=== PATIENT | male | born 1980 | race Caucasian/White ===

== ENCOUNTER 2019-04-16 08:06 | Day surgery (SDC) | payer OTHER, SELFPAY ==
[2019-04-15 15:13] VITALS: BMI 40.1
[2019-04-16] VITALS (9 sets, daily range): BP systolic 103–134; BP diastolic 60–95; PULSE 69–81; RESP 15–35; TEMP 36.4–36.8; O2SAT 82–97; BMI 39.2
[2019-04-16] MEDS: LACTATED RINGERS 1,000 ML 100 ML IV (08:39)
--- NOTE | 2019-04-16 09:47 | PM.HP.1 ---
History of Present Illness History of Present Illness Date Patient Seen: 04/16/19 Time Patient Seen: 09:48 Chief complaint: [id number] OPEN UMBILICAL HERNIA REPAIR W/MESH Narrative: This is a 38-year-old male with a symptomatic umbilical hernia who presents for elective repair. There been no interval changes in his health. Please refer the H and P from December 2018 for further detail. Patient History Medical History Carpal tunnel syndrome (Acute) Surgical History Hx of foot surgery (Resolved) Family & Social History Social History: household members spouse Tobacco & Substance use: Smoking Status Never smoker alcohol intake current Meds Home Medications and Allergies Home Medications Medication Instructions Recorded Confirmed Type No Known Home Medications 01/02/19 04/15/19 History Allergies Allergy/AdvReac Type Severity Reaction Status Date / Time No Known Drug Allergies Allergy Verified 04/16/19 08:40 Review of Systems Review of Systems Narrative: A complete review of systems is negative except as noted in the HPI Exam Vital Signs (past 8 hours): - 04/16/19 08:18 Temperature 97.6 F Pulse Rate 81 Respiratory Rate 16 Blood Pressure 133/83 Pulse Oximetry 97 Oxygen Delivery Method Room Air Narrative Exam Narrative: General-no acute distress, well nourished HEENT-moist mucous membranes, no scleral icterus Neck-supple, no lymphadenopathy Chest- non labored respirations, clear to auscultation bilaterally Cardiac-regular rate no peripheral edema Abdomen-soft, partially reducible umbilical hernia Extremities-warm, well perfused Neurological-alert and oriented, no focal deficits Assessment & Plan Assessment and plan (1) Umbilical hernia: Current visit: Yes Status: Acute Assessment & Plan narrative: 38-year-old male with umbilical hernia presents for elective open repair possible mesh. Please see the H& P from December 2018 for further detail.
[2019-04-16] MEDS: CEFAZOLIN 2 GM/100 ML FROZ.PIGGY IV (09:58)
--- NOTE | 2019-04-16 10:22 | SUR.OPER ---
Supine on padded OR bed, head on pillow, arms secured on padded arm boards at <90 degrees abduction, legs uncrossed, safety belt at thigh, tape over blanket over lower legs.
[2019-04-16] MEDS: BUPIVACAINE 0.25% (PF) VIAL 30 ML INJ (10:28)
--- NOTE | 2019-04-16 11:16 | PM.OP.1 ---
Operative Date/Time/Diagnoses Date of procedure: 04/16/19 Time of procedure: 11:16 Pre-op diagnosis: Umbilical hernia Post-op diagnosis: same Procedure & Clinicians Procedure: open umbilical hernia with mesh Same procedure as scheduled: Yes Indications: 38M with a symptomatic umbilical hernia presents for elective repair Surgeon: Luis Antonio Noble Anesthesia Type: General Operative Notes Findings: Fat containing umbilical hernia. Fascial defect 3 cm Estimated Blood Loss (mL): 10 Procedure in detail: Patient was brought to the operating room placed supine on the table. Bilateral lower extremity compression devices were applied. General anesthesia was inducedand they were intubated with an endotracheal tube. They received 2 g of Ancef prior to skin incision. They were prepped and draped in sterile fashion. A time-out was performed ensure the correct patient procedure necessary equipment within the operating room. A curvilinear incision was made inferior to the umbilicus. The subcutaneous tissues were divided. The umbilical hernia was identified and was dissected off the umbilicus and circumferentially. The umbilical hernia sac was opened carefully using Shankar and contained viable omentum. The hernia sac was then closed with 3 0 Vicryl suture. The sac was reduced into the abdomen and the fascia was cleared from above in order to accommodate the mesh. The fascial edges were then reapproximated with a [id number] 0 PDS suture. A Pro Loop polypropylene mesh was inserted over the fascial defect. It was secured to the fascia using 0 Prolene suture in interrupted fashion. The subcutaneous tissues were reapproximated using 3 0 Vicryl skin closed with 4 0 Monocryl upon by the application of Dermabond and Steri-Strips. Sponge instrument count at the end of the operation was correct. Patient tolerated procedure well was extubated and transferred to postoperative care unit in stable condition. Complications: none Post-operative Condition: stable Disposition: same day surgery
[2019-04-16] MEDS: OXYCODONE/ACETAMINOPHEN 5/325 TABLET 1 TAB PO (11:31)
[2019-04-16] MEDS: fentaNYL 100 MCG/2 ML INJ 50 MCG IV (11:43)
--- NOTE | 2019-04-16 12:07 | SUR.PHASEI ---
Report given to Catherine
== END 2019-04-16 12:36 | disposition home or self-care (01) ==
PROVIDERS: PCP Family Medicine; Visit Provider Surgery
PROC: (CPT 49585; principal; 2019-04-16 09:15)
DX: K42.9 Umbilical hernia without obstruction or gangrene (principal)
CPT/HCPCS: 49585; C1781; J0690; J1100; J2250; J2405; J2704; J3010

== ENCOUNTER 2023-07-07 21:35 | Emergency (ER) | payer OTHER, SELFPAY ==
[2023-07-07 21:38] VITALS: BP 138/82; PULSE 83; RESP 18; TEMP 36.7; O2SAT 98; BMI 40.7
--- NOTE | 2023-07-07 21:43 | DI.RAD.S_ITS ---
PROCEDURE: XR CHEST 2V INDICATIONS: cough, sob TECHNIQUE: 2 views of the chest were acquired. COMPARISON: None. FINDINGS: Surgical changes and devices: None. Lungs and pleura: Diffuse interstitial prominence. Mild perihilar airway thickening. No focal consolidation. No pneumothorax or pleural effusion. Mediastinum: Mediastinal contours are normal. Heart size is normal. Bones and chest wall: No suspicious bony abnormalities. Soft tissues appear unremarkable. IMPRESSION: Diffuse interstitial prominence and perihilar airway thickening. Findings are nonspecific but may represent an infectious or inflammatory process. No focal consolidation seen. Dictated by: Ankur Giron M.D. on 07/07/2023 at 22:18 Approved by: Ankur Giron M.D. on 07/07/2023 at 22:19
[2023-07-07 22:20] VITALS: PULSE 92; RESP 28; O2SAT 96
--- NOTE | 2023-07-07 22:46 | ED_ITS ---
HPI - URI/Sore Throat General Chief Complaint: Upper Respiratory Symptoms Stated Complaint: cough/SOB/states lungs burn Time Seen by Provider: 07/07/23 22:35 Source: patient Mode of arrival: Ambulatory Limitations: no limitations History of Present Illness HPI Narrative: 42-year-old male with history of hypertension with proximally 2 weeks of cough cold congestion symptoms although patient states he was feeling better until today. Patient had fevers and sweats a week ago, he had nausea and vomiting at that time as well. He states that has improved. Patient never had any diarrhea. He has had a persistent cough that has been nonproductive. Had improved until this evening when it was triggered again. Patient states he had some chest discomfort last week when he was coughing a lot. But states that that had resolved. No syncope. No diarrhea or constipation. No other GI symptoms. No swelling of extremities. He is on lisinopril daily. Has had prior carpal tunnel surgery. No allergies but does not tolerate codeine well. No tobacco, does drink alcohol regularly, no recreational drugs. He is accompanied by his . Related Data Home Medications Medication Instructions Recorded Confirmed hydroxyzine HCl 25 mg tablet 25 mg PO BID 02/19/23 02/19/23 lisinopril 20 mg tablet 20 mg PO DAILY 02/19/23 02/19/23 testosterone cypionate 200 mg/mL mg IM 02/19/23 02/19/23 intramuscular oil Previous Rx's Medication Instructions Recorded doxycycline hyclate 100 mg capsule 100 mg PO BID #14 caps 02/19/23 benzonatate 100 mg capsule 200 mg (2 x 100 mg) PO TID PRN 07/07/23 cough #20 caps Allergies Allergy/AdvReac Type Severity Reaction Status Date / Time No Known Drug Allergies Allergy Verified 02/19/23 15:04 Review of Systems Review of Systems ROS Unobtainable: All systems reviewed & are unremarkable except as noted in HPI and below Patient History Medical History (Updated 07/07/23 @ 23:16 by Jacinda Corona DO) Carpal tunnel syndrome Surgical History Hx of foot surgery Social History household members: spouse Smoking Status: Never smoker alcohol intake: current substance use type: does not use Smoking Status: Never smoker Exam Narrative Exam Narrative: GEN: well nourished, well appearing male, alert and oriented x 3, patient appears to be in mild distress. HEENT: Atraumatic, pupils are equal round reactive to light, extraocular movements are intact, mild nasal congestion, Throat is clear without any exudates, erythema, tonsillar enlargement or uvular deviation HEART: Regular rate and rhythm without murmur, clicks, rubs. LUNGS:Lungs clear to auscultation, no wheezes, rales, crackles, chest moves symmetrically, no tachypnea or accessory muscle use. Patient has a occasional dry cough. ABD:bowel sounds normal, soft, non-tender, no guarding, rebound, rigidity, no masses noted, no hepatosplenomegaly :No CVA tenderness, [male/female exam] MSCL: Non-tender, no muscle atrophy, muscles strength 5/5 upper and lower extremities, full range of motion, normal gait NEURO:CN 2-12 intact, sensation normal SKIN: No rash, erythema or other skin changes Initial Vital Signs Initial Vital Signs: Vital Signs Temperature 98.1 F 07/07/23 21:38 Pulse Rate 83 07/07/23 21:38 Respiratory Rate 18 07/07/23 21:38 Blood Pressure 138/82 07/07/23 21:38 Pulse Oximetry 98 07/07/23 21:38 Oxygen Delivery Method Room Air 07/07/23 21:38 Course Orders Ordered: ED Orders 07/07/23 21:43 Chest [XR chest 2V] Stat 07/07/23 21:46 Covid-19 + FLU A/B + RSV - PCR Stat Vital Signs Vital signs: Vital Signs - 8 hr 07/07/23 21:38 07/07/23 22:20 07/07/23 23:14 Temperature 98.1 F Pulse Rate 83 92 H 89 Respiratory Rate 18 28 H 18 Blood Pressure 138/82 Pulse Oximetry 98 96 97 Oxygen Delivery Method Room Air Room Air Room Air MDM - URI/Sore Throat Lab Data Labs: Lab Results 07/07/23 Range/Units 21:46 SARS-CoV-2 (PCR) Negative (Negative) Influenza A (RT-PCR) Flu a positive H (NEGATIVE) Influenza B (RT-PCR) Flu b negative (NEGATIVE) RSV (PCR) Negative (Negative) Imaging Data Chest x-ray: Radiologist's Impression: [address] [address] XRay Report Signed Patient: Carlos Flores MR#: [id number] : 1980 Acct:[id number] Age/Sex: 42 / M Date of Service: 07/07/23 Loc: ED Accession Number: [id number] Procedure: XR chest 2V Ordering Provider: Jacinda Corona D.O. PROCEDURE: XR CHEST 2V INDICATIONS: cough, sob TECHNIQUE: 2 views of the chest were acquired. COMPARISON: None. FINDINGS: Surgical changes and devices: None. Lungs and pleura: Diffuse interstitial prominence. Mild perihilar airway thickening. No focal consolidation. No pneumothorax or pleural effusion. Mediastinum: Mediastinal contours are normal. Heart size is normal. Bones and chest wall: No suspicious bony abnormalities. Soft tissues appear unremarkable. IMPRESSION: Diffuse interstitial prominence and perihilar airway thickening. Findings are nonspecific but may represent an infectious or inflammatory process. No focal consolidation seen. Dictated by: Ankur Giron M.D. on 07/07/2023 at 22:18 Approved by: Ankur Giron M.D. on 07/07/2023 at 22:19 [facility] Narrative Medical decision making narrative: 32-year-old male with history of hypertension who has had about 2 weeks of respiratory symptoms he was actually improving was asymptomatic for a day or 2 and then developed new symptoms. Last week he had more GI symptoms. Patient had COVID/influenza RSV swab this was still pending but patient elected to return home. Chest x-ray shows diffuse interstitial prominence perihilar airway thickening non suspected or infectious or inflammatory process no focal consolidation. Patient is influenza A, patient and state they will follow up results. Discharge Plan Departure Patient Disposition: Home Clinical Impression: Upper respiratory infection, Influenza A Activity Restrictions/Additional Instructions: Your swab for influenza/RSV/COVID is pending. Please call for results. Your chest x-ray shows findings most consistent with a viral illness. You may take cough medication as prescribed. [facility] [place]. You may take 1 tab every 8 hours as needed. Please return for new or worsening chest pain, increasing shortness of breath, lightheadedness or passing out, persistent or new swelling of your extremities or other new or concerning changes. Prescriptions: New benzonatate 100 mg capsule 200 mg PO TID PRN (Reason: cough) Qty: 20 0RF No Action testosterone cypionate 200 mg/mL oil IM lisinopril 20 mg tablet 20 mg PO DAILY hydroxyzine HCl 25 mg tablet 25 mg PO BID doxycycline hyclate 100 mg capsule 100 mg PO BID Qty: 14 0RF Referrals: Carlos Gutierrez MD [Primary Care Provider] - Stand Alone Forms: Patient Portal/API
[2023-07-07 23:13] LABS: COVID-19 CEPHEID 4-PLEX PCR Negative (Negative); Influenza A - CEPHEID Flu A POSITIVE (NEGATIVE); Influenza B - CEPHEID Flu B NEGATIVE (NEGATIVE); Respiratory Syncytial Virus Negative (Negative)
[2023-07-07 23:14] VITALS: PULSE 89; RESP 18; O2SAT 97
== END 2023-07-07 23:19 | disposition home or self-care (01) ==
PROVIDERS: Emergency Provider Emergency Medicine; PCP Family Medicine
DX: J10.1 Influenza due to other identified influenza virus with other respiratory manifestations (principal); Z20.822 Contact with and (suspected) exposure to COVID-19
CPT/HCPCS: 0241U; 71046; 99281; 99283

== ENCOUNTER → 2024-09-18 06:50 | Outpatient (CLI) | payer OTHER, SELFPAY ==
--- NOTE | 2024-09-18 06:52 | DI.ECHO.S_ITS ---
[facility] +---------+ Hospital : : [address] : : [place] : : [id number] : : Phone: [phone] Echocardiogram Report + + :Name: NOHEMI ALLEY Srinivasan Study Date: 09/18/2024 Height: 66 in : :Hospital ReadingLocation: Weight: 304 lb : : Gender: Male BSA: 2.4 m2 : :: 1980 Age: 44 yrs BP: 164/97 mmHg: :Reason For Study: ORTHOPNEA : :Ordering Physician: WARREN, : :ALLEY Performed By: Callum Monroy : :Referring: ALLEY KELLEY : + + Interpretation Summary Extremely technically difficult study. Contrast enhancement helped visualization of LV systolic function. There is normal LV systolic function, LVEF is 55-60%. No wall motion abnormalities are noted. Other cardiac structures are very poorly visualized. Doppler assessment demonstrates absence of aortic stenosis. Other (limited) findings as below. No previous echo images are available for comparison. Procedure: A two-dimensional transthoracic echocardiogram with color flow and Doppler was performed. The study quality was technically difficult. The study quality was technically limited. A contrast injection of Definity was performed to improve assessment of LV function. There is no prior echocardiogram noted for this patient. The patient was in normal sinus rhythm during the exam. Left Ventricle: The left ventricle is not well visualized. The ejection fraction is estimated to be 55-60%. Left ventricular systolic function is normal. Right Ventricle: The right ventricle is not well visualized. Atria: The left atrium is not well visualized. Right atrium not well visualized. The interatrial septum is not well visualized. Mitral Valve: The mitral valve is not well visualized. There is no mitral regurgitation noted. Aortic Valve: The aortic valve is not well visualized. There is no aortic valve stenosis. No aortic regurgitation is present. Tricuspid Valve: The tricuspid valve is not well visualized. No tricuspid regurgitation. Pulmonic Valve: The pulmonic valve is not well visualized. There is no pulmonic valvular regurgitation. Great Vessels: The aortic root is normal size. The dimensions of the ascending aorta are normal. The pulmonary is not well visualized. The inferior vena cava was not visualized. MMode/2D Measurements & Calculations LVIDd: 5.3 cm LVOT diam: 2.2 cm LVIDs: 3.2 cm Ao root diam: 3.5 cm FS: 39.2 % asc Aorta Diam: 3.2 cm EPSS: 0.40 cm IVSd: 1.4 cm LVPWd: 1.2 cm LV saucedo. diameter/BSA (cm/m^2): 2.2 LV sys. diameter/BSA (cm/m^2): 1.3 TAPSE: 1.9 cm Doppler Measurements & Calculations Ao V2 max: 135.6 cm/sec LVOT Max Ralph: 128.1 cm/sec Ao V2 mean: 101.3 cm/sec LV V1 max P.6 mmHg Ao max P.4 mmHg LV V1 VTI: 22.6 cm Ao mean P.4 mmHg FREDI(I,D): 2.8 cm2 Ao V2 VTI: 29.7 cm FREDI(V,D): 3.5 cm2 sev ratio: 0.76 FREDI indexed to BSA (cm^2/m^2): 1.2 MV E max ralph: 89.4 cm/sec PA V2 max: 144.7 cm/sec MV A max ralph: 56.5 cm/sec PA V2 mean: 107.2 cm/sec MV E/A: 1.6 PA mean P.9 mmHg Med Peak E' Ralph: 9.3 cm/sec PA pr(Accel): 49.9 mmHg E/E' med: 9.6 Lat Peak E' Ralph: 9.7 cm/sec E/E' lat: 9.3 E/e' average: 9.4 MV dec time: 0.19 sec SV(LVOT): 84.5 ml Reading Physician:09:44 AM
== END ==
LOC: ECHO 06:51
PROVIDERS: PCP Family Medicine; Referring Provider Family Medicine; Visit Provider Family Medicine
DX: G47.33 Obstructive sleep apnea (adult) (pediatric) (principal); R06.01 Orthopnea
CPT/HCPCS: C8929; Q9957

== ENCOUNTER 2024-10-23 06:52 | Emergency (ER) | payer OTHER, SELFPAY ==
[2024-10-23] VITALS (148 sets, daily range): BP systolic 73–201; BP diastolic 35–144; PULSE 62–190; RESP 4–125; TEMP 36.7–37.6; O2SAT 53–100; BMI 49.2
--- NOTE | 2024-10-23 | DI.RAD.S_ITS ---
PROCEDURE: XR CHEST 1V INDICATIONS: INTUBATION PLACEMENT TECHNIQUE: One view of the chest was acquired. COMPARISON: [facility], CR, XR CHEST 2V, 07/07/2023, 21:45. [facility], CR, XR CHEST 1V, 10/23/2024, 7:18. FINDINGS: Surgical changes and devices: An endotracheal tube is seen, with the tip 3 cm above the kathe. Lungs and pleura: An incomplete inspiratory result is noted, causing a crowded appearance to the lung markings. Mild generalized interstitial prominence can be seen. No pneumothorax or significant pleural effusions are seen. Mediastinum: Mediastinal contours appear normal. Heart size is normal. Bones and chest wall: No suspicious bony lesions. Overlying soft tissues appear unremarkable. IMPRESSION: The tip of the endotracheal tube is seen 3 cm above the kathe. Low lung volumes with generalized interstitial prominence. Pulmonary edema is suspected, although differential diagnosis includes artifact. Dictated by: Louie Joshua M.D. on 10/23/2024 at 10:29 Approved by: Louie Joshua M.D. on 10/23/2024 at 10:31
--- NOTE | 2024-10-23 07:14 | EKG_ITS ---
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
--- NOTE | 2024-10-23 07:14 | DI.RAD.S_ITS ---
PROCEDURE: XR CHEST 1V INDICATIONS: sob/swelling TECHNIQUE: One view of the chest was acquired. COMPARISON: [facility], CR, XR CHEST 2V, 07/07/2023, 21:45. FINDINGS: Surgical changes and devices: None. Lungs and pleura: There is pulmonary vascular congestion. No definite focal infiltrate. No pleural effusions or pneumothorax. Mediastinum: Mediastinal contours appear normal. Heart size is enlarged. Bones and chest wall: No suspicious bony lesions. Overlying soft tissues appear unremarkable. IMPRESSION: Cardiomegaly and mild congestion. No definite focal infiltrate. No pneumothorax. Dictated by: Mason Skinner M.D. on 10/23/2024 at 8:14 Approved by: Mason Skinner M.D. on 10/23/2024 at 8:14
--- NOTE | 2024-10-23 07:15 | ED.SOB ---
HPI - SOB/Dyspnea General Chief Complaint: Shortness of Breath/Dyspnea Stated Complaint: SOB x3days, Cannot Breathe Time Seen by Provider: 10/23/24 07:09 Source: patient, RN notes reviewed and old records reviewed Mode of arrival: Ambulatory Limitations: no limitations History of Present Illness HPI Narrative: 44-year-old male history of hypertension, CHF with complaint of increased swelling of his lips, tongue and airway for the past 3 days. Patient states that has been progressively worse but particularly in the mornings and then we will sort of improve as the day goes by and sometimes worse in the evening. He describes it as slowly progressive but difficult to swallow foods. He states he has been hoarse like he has a frog in his throat. He states he was pain in his tongue where he has been chewing it. Denies any recent infectious symptoms. Denies fevers. Denies any substernal chest pain, denies any shortness of breath in his chest. States he threw up twice 2 days ago, denies any other GI or urinary symptoms. Notes increased swelling in his lower extremities. Does note he has been on lisinopril for several years, recently was started on furosemide, takes Prozac which was started in August. Patient does not take any aspirin or thinners. No known drug allergies has not had similar symptoms in the past. Former smoker. Dr. Gutierrez as his primary care physician. Related Data Home Medications ?Medication ?Instructions ?Recorded ?Confirmed hydroxyzine HCl 25 mg tablet 25 mg PO BID 02/19/23 02/19/23 lisinopril 20 mg tablet 20 mg PO DAILY 02/19/23 02/19/23 testosterone cypionate 200 mg/mL mg IM 02/19/23 02/19/23 intramuscular oil Previous Rx's ?Medication ?Instructions ?Recorded doxycycline hyclate 100 mg capsule 100 mg PO BID #14 caps 02/19/23 benzonatate 100 mg capsule 200 mg (2 x 100 mg) PO TID PRN 07/07/23 cough #20 caps Allergies Allergy/AdvReac Type Severity Reaction Status Date / Time No Known Drug Allergies Allergy Verified 10/23/24 07:01 Review of Systems Review of Systems ROS Unobtainable: All systems reviewed & are unremarkable except as noted in HPI and below Patient History Medical History (Updated 10/23/24 @ 14:49 by Jacinda Corona DO) Carpal tunnel syndrome Surgical History Hx of foot surgery Social History household members: spouse Smoking Status: Former smoker alcohol intake: current substance use type: does not use Smoking Status: Former smoker Exam Narrative Exam Narrative: GEN: Obese male, alert and oriented x 3, patient appears to be in moderate distress. Diaphoretic. HEENT: Atraumatic, pupils are equal round reactive to light, extraocular movements are intact, nares are clear, TMs are clear with no fluid, there is no conjunctival pallor. Throat is clear without any exudates, erythema, tonsillar enlargement or uvular deviation, patient's tongue is swollen, lips are possibly slightly swollen patient's face is erythematous. Patient was sitting upright, no stridor but does have some hoarseness. Does have some trouble with secretions. HEART: Regular rate and rhythm without murmur, clicks, rubs. Pulses equal bilateral upper extremities. Patient has edema bilateral lower extremities. LUNGS:Lungs clear to auscultation, no wheezes, rales, crackles, chest moves symmetrically ABD:bowel sounds normal, soft, non-tender, no guarding, rebound, rigidity, no masses noted, no hepatosplenomegaly MSCL: Non-tender, normal gait NEURO:CN 2-12 intact, sensation normal SKIN: No rash, no erythema no other skin changes Initial Vital Signs Initial Vital Signs: Vital Signs Temperature 98.4 F 10/23/24 07:01 Pulse Rate 114 H 10/23/24 07:01 Respiratory Rate 28 H 10/23/24 07:01 Blood Pressure 186/99 H 10/23/24 07:01 Pulse Oximetry 97 10/23/24 07:01 Oxygen Delivery Method Room Air 10/23/24 07:01 Course Orders Ordered: ED Orders 10/23/24 11:15 CT angio chest abdomen pelvis Urgent CT head/brain wo con Urgent CT soft tissue neck w con Urgent 10/23/24 11:48 Chest [XR chest 1V] Stat 10/23/24 13:08 CBC Auto Diff [Complete Blood Count AUTO DIFF] Stat CMP [Comprehensive Metabolic Panel] Stat Troponin & CK Cardiac Panel Stat 10/23/24 14:23 Potassium Stat Ketamine HCl 250 mg/ Sodium (Chloride) 252.5 mls @ 19.998 mls/hr IV TITRATE [facility]; Protocol Last Titration: 10/23/24 15:26 Dose: 0.4 mg/kg/hr, 39.996 mls/hr Documented By: Titration: 10/23/24 14:24 Dose: 0.2 mg/kg/hr, 19.998 mls/hr Documented By: Titration: 10/23/24 14:02 Dose: 0.3 mg/kg/hr, 29.997 mls/hr Documented By: Titration: 10/23/24 13:24 Dose: 0.4 mg/kg/hr, 39.996 mls/hr Documented By: Titration: 10/23/24 12:57 Dose: 0.3 mg/kg/hr, 29.997 mls/hr Documented By: Admin: 10/23/24 12:28 Dose: 0.2 mg/kg/hr, 19.998 mls/hr Documented By: RB NOREPINEPHRINE BITARTRATE/D5W (Levophed) 4 mg in 250 mls @ 24 mls/hr IV TITRATE [facility]; Protocol Last Admin: 10/23/24 16:03 Dose: 0.6 mcg/kg/min, 144 mls/hr Documented By: Titration: 10/23/24 16:03 Dose: Infused Documented By: Titration: 10/23/24 15:25 Dose: 0.6 mcg/kg/min, 144 mls/hr Documented By: Titration: 10/23/24 14:47 Dose: 0.4 mcg/kg/min, 96 mls/hr Documented By: Titration: 10/23/24 14:24 Dose: 0.3 mcg/kg/min, 72 mls/hr Documented By: Titration: 10/23/24 14:17 Dose: 0.2 mcg/kg/min, 48 mls/hr Documented By: Titration: 10/23/24 14:02 Dose: 0.15 mcg/kg/min, 36 mls/hr Documented By: Titration: 10/23/24 13:36 Dose: 0.1 mcg/kg/min, 24 mls/hr Documented By: Titration: 10/23/24 13:22 Dose: 0 mcg/kg/min, 0 mls/hr Documented By: Admin: 10/23/24 13:09 Dose: 0.1 mcg/kg/min, 24 mls/hr Documented By: RB Propofol (Diprivan) 1,000 mg in 100 mls @ 2.97 mls/hr IV TITRATE [facility]; Protocol Last Titration: 10/23/24 15:26 Dose: 10 mcg/kg/min, 5.94 mls/hr Documented By: Admin: 10/23/24 14:22 Dose: 5 mcg/kg/min, 2.97 mls/hr Documented By: RB Fentanyl 1,000 mcg/ Dextrose 250 mls @ 17.325 mls/hr IV TITRATE [facility]; Protocol Last Titration: 10/23/24 15:27 Dose: 1 mcg/kg/hr, 24.75 mls/hr Documented By: Admin: 10/23/24 15:01 Dose: 0.7 mcg/kg/hr, 17.325 mls/hr Documented By: RB Methylprednisolone (Methylprednisolone 125 Mg/2 Ml Vial) 80 mg IV Q8H [facility] Last Admin: 10/23/24 15:27 Dose: 80 mg Documented By: RB Discontinued Medications Dextrose (Dextrose 50 % In Water 25 Gm/50 Ml Syringe) 25 gm IV NOW ONE Stop: 10/23/24 14:45 Last Admin: 10/23/24 15:12 Dose: 25 gm Documented By: RB Diazepam (Diazepam 10 Mg/2 Ml Syringe) 2 mg IV NOW ONE Stop: 10/23/24 10:37 Last Admin: 10/23/24 11:10 Dose: Not Given Documented By: RB Diazepam (Diazepam 10 Mg/2 Ml Syringe) 1 mg IV NOW ONE Stop: 10/23/24 10:38 Last Admin: 10/23/24 10:42 Dose: 1 mg Documented By: RB Diazepam (Diazepam 10 Mg/2 Ml Syringe) 5 mg IV NOW ONE Stop: 10/23/24 13:30 Last Admin: 10/23/24 13:47 Dose: 5 mg Documented By: RB Diazepam (Diazepam 10 Mg/2 Ml Syringe) 5 mg IV NOW ONE Stop: 10/23/24 15:39 Last Admin: 10/23/24 15:44 Dose: 5 mg Documented By: RB Diphenhydramine HCl (Diphenhydramine 50 Mg/Ml Vial) 50 mg IV NOW ONE Stop: 10/23/24 07:17 Last Admin: 10/23/24 07:24 Dose: 50 mg Documented By: RAMEZ Epinephrine (Racepinephrine 0.5 Ml Neb) 0.5 ml INH NOW ONE Stop: 10/23/24 07:47 Last Admin: 10/23/24 08:16 Dose: 0.5 ml Documented By: RUT Epinephrine HCl (Epinephrine 1 Mg/Ml) 0.5 mg IM NOW ONE Stop: 10/23/24 07:15 Last Admin: 10/23/24 07:24 Dose: 0.5 mg Documented By: RAMEZ Famotidine (Famotidine 20 Mg/2 Ml Vial) 40 mg IV DAILY ONE Stop: 10/23/24 07:16 Last Admin: 10/23/24 07:24 Dose: 40 mg Documented By: RAMEZ Furosemide (Furosemide 40 Mg/4 Ml Vial) 40 mg IV NOW ONE Stop: 10/23/24 14:46 Last Admin: 10/23/24 15:10 Dose: 40 mg Documented By: RB Glycopyrrolate (Glycopyrrolate 0.4 Mg/2 Ml Vial) 0.2 mg IM NOW ONE Stop: 10/23/24 08:04 Last Admin: 10/23/24 08:31 Dose: 0.2 mg Documented By: RB Sodium Chloride (Normal Saline 0.9%) 1,000 mls @ 150 mls/hr IV CONT [facility] Last Infusion: 10/23/24 10:30 Dose: Infused Documented By: Infusion: 10/23/24 10:04 Dose: 150 mls/hr Documented By: Infusion: 10/23/24 09:52 Dose: 0 mls/hr Documented By: Admin: 10/23/24 07:33 Dose: 150 mls/hr Documented By: RB Tranexamic Acid 1,000 mg/ (Sodium Chloride) 100 mls @ 200 mls/hr IV NOW ONE Stop: 10/23/24 07:57 Last Infusion: 10/23/24 08:16 Dose: Infused Documented By: Admin: 10/23/24 07:33 Dose: 200 mls/hr Documented By: RB Sodium Chloride (Hypertonic Saline 3%) 100 mls @ 600 mls/hr IV NOW ONE Stop: 10/23/24 09:05 Last Infusion: 10/23/24 10:04 Dose: Infused Documented By: Admin: 10/23/24 09:52 Dose: 600 mls/hr Documented By: RB NOREPINEPHRINE BITARTRATE/D5W (Levophed) 4 mg in 250 mls @ 51.88 mls/hr IV TITRATE [facility]; Protocol Last Titration: 10/23/24 13:08 Dose: Infused Documented By: Admin: 10/23/24 11:59 Dose: 0.05 mcg/kg/min, 24 mls/hr Documented By: RB Propofol (Diprivan) 1,000 mg in 100 mls @ 4.521 mls/hr IV TITRATE [facility]; Protocol Last Admin: 10/23/24 13:55 Dose: Not Given Documented By: RB Piperacillin Sod/Tazobactam (Sod 4.5 gm/ Sodium Chloride) 100 mls @ 200 mls/hr IV NOW ONE Stop: 10/23/24 14:13 Last Admin: 10/23/24 14:55 Dose: Not Given Documented By: RB Fentanyl 1,000 mcg/ Dextrose 250 mls @ 26.373 mls/hr IV TITRATE [facility]; Protocol Last Admin: 10/23/24 15:00 Dose: Not Given Documented By: RB Calcium Gluconate 4.65 meq/ (Sodium Chloride) 60 mls @ 180 mls/hr IV NOW ONE Stop: 10/23/24 15:03 Last Infusion: 10/23/24 15:35 Dose: Infused Documented By: Admin: 10/23/24 15:01 Dose: 180 mls/hr Documented By: RB Ceftriaxone Sodium 1,000 mg/ (Sodium Chloride) 100 mls @ 200 mls/hr IV NOW ONE Stop: 10/23/24 14:56 Last Admin: 10/23/24 15:37 Dose: 200 mls/hr Documented By: RB Insulin Human Regular (Insulin Regular 100 Unit/Ml 3 Ml Vial) 5 unit IV NOW ONE Stop: 10/23/24 14:45 Last Admin: 10/23/24 15:15 Dose: 5 unit Documented By: RB Co-signed By: KRYSTAL Methylprednisolone (Methylprednisolone 125 Mg/2 Ml Vial) 125 mg IV NOW ONE Stop: 10/23/24 07:15 Last Admin: 10/23/24 07:25 Dose: 125 mg Documented By: RAMEZ Methylprednisolone (Methylprednisolone 125 Mg/2 Ml Vial) 80 mg IV Q8H [facility] Propofol (Propofol 200 Mg/20 Ml Vial) 100 mg IV NOW ONE Stop: 10/23/24 13:28 Last Admin: 10/23/24 13:33 Dose: 100 mg Documented By: RB Rocuronium [place] (Rocuronium 50 Mg/5 Ml Inj) 50 mg IV NOW ONE Stop: 10/23/24 15:38 Last Admin: 10/23/24 15:49 Dose: 50 mg Documented By: RB Sodium Bicarbonate (Sodium Bicarb 8.4% Syringe) 50 meq IV NOW ONE Stop: 10/23/24 14:45 Last Admin: 10/23/24 15:12 Dose: 50 meq Documented By: RB Vital Signs Vital signs: Vital Signs - 8 hr 10/23/24 09:00 10/23/24 09:01 10/23/24 09:01 Temperature Pulse Rate 105 H 104 H Respiratory Rate 35 H 31 H Blood Pressure 156/103 H Pulse Oximetry 96 97 Oxygen Delivery Method Oxygen Flow Rate 10/23/24 09:15 10/23/24 09:15 10/23/24 09:30 Temperature Pulse Rate 114 H 82 Respiratory Rate Blood Pressure 165/115 H Pulse Oximetry 97 96 Oxygen Delivery Method Oxygen Flow Rate 10/23/24 09:31 10/23/24 09:31 10/23/24 09:45 Temperature Pulse Rate 101 H 122 H Respiratory Rate Blood Pressure 170/95 H Pulse Oximetry 96 96 Oxygen Delivery Method Oxygen Flow Rate 10/23/24 09:45 10/23/24 10:00 10/23/24 10:00 Temperature Pulse Rate 105 H Respiratory Rate 45 H Blood Pressure 201/118 H 189/93 H Pulse Oximetry 96 Oxygen Delivery Method Oxygen Flow Rate 10/23/24 10:45 10/23/24 10:46 10/23/24 10:47 Temperature Pulse Rate 190 H 150 H 154 H Respiratory Rate Blood Pressure Pulse Oximetry 85 L 86 L 87 L Oxygen Delivery Method CPAP CPAP CPAP Oxygen Flow Rate 10/23/24 10:48 10/23/24 10:49 10/23/24 10:50 Temperature Pulse Rate 168 H 158 H 126 H Respiratory Rate Blood Pressure Pulse Oximetry 78 L 68 L 59 L Oxygen Delivery Method CPAP CPAP CPAP Oxygen Flow Rate 10/23/24 10:51 10/23/24 10:52 10/23/24 10:53 Temperature Pulse Rate 170 H 161 H 130 H Respiratory Rate 125 H 104 H Blood Pressure Pulse Oximetry 87 L 92 61 L Oxygen Delivery Method Room Air Room Air Ambu Bag Oxygen Flow Rate 15 10/23/24 10:54 10/23/24 10:55 10/23/24 10:57 Temperature Pulse Rate 69 62 106 H Respiratory Rate 123 H Blood Pressure Pulse Oximetry 57 L 57 L Oxygen Delivery Method Ambu Bag Ambu Bag Oxygen Flow Rate 15 15 10/23/24 10:58 10/23/24 10:59 10/23/24 11:00 Temperature Pulse Rate 114 H 119 H Respiratory Rate 91 H 30 H Blood Pressure 164/89 H Pulse Oximetry Oxygen Delivery Method Oxygen Flow Rate 10/23/24 11:00 10/23/24 11:01 10/23/24 11:02 Temperature Pulse Rate 127 H 126 H 123 H Respiratory Rate 34 H 29 H 32 H Blood Pressure Pulse Oximetry 53 L 73 L 86 L Oxygen Delivery Method Ambu Bag Mechanical Ventilation Mechanical Ventilation Oxygen Flow Rate 15 10/23/24 11:03 10/23/24 11:04 10/23/24 11:05 Temperature Pulse Rate 119 H 119 H 120 H Respiratory Rate 27 H 22 18 Blood Pressure Pulse Oximetry 99 87 L 90 L Oxygen Delivery Method Mechanical Ventilation Mechanical Ventilation Mechanical Ventilation Oxygen Flow Rate 10/23/24 11:06 10/23/24 11:07 10/23/24 11:08 Temperature Pulse Rate 118 H 115 H 114 H Respiratory Rate 17 26 H 21 Blood Pressure Pulse Oximetry 96 97 97 Oxygen Delivery Method Mechanical Ventilation Mechanical Ventilation Mechanical Ventilation Oxygen Flow Rate 10/23/24 11:08 10/23/24 11:09 10/23/24 11:09 Temperature Pulse Rate 114 H Respiratory Rate 34 H Blood Pressure 145/67 H 142/70 H Pulse Oximetry 98 Oxygen Delivery Method Mechanical Ventilation Oxygen Flow Rate 10/23/24 11:10 10/23/24 11:10 10/23/24 11:11 Temperature Pulse Rate 109 H Respiratory Rate 22 Blood Pressure 160/67 H 145/62 H Pulse Oximetry 95 Oxygen Delivery Method Mechanical Ventilation Oxygen Flow Rate 10/23/24 11:11 10/23/24 11:12 10/23/24 11:12 Temperature Pulse Rate 112 H 107 H Respiratory Rate 22 20 Blood Pressure 140/65 Pulse Oximetry 98 94 Oxygen Delivery Method Mechanical Ventilation Mechanical Ventilation Oxygen Flow Rate 10/23/24 11:13 10/23/24 11:13 10/23/24 11:14 Temperature Pulse Rate 118 H 110 H Respiratory Rate 13 14 Blood Pressure 134/62 Pulse Oximetry 98 83 L Oxygen Delivery Method Mechanical Ventilation Mechanical Ventilation Oxygen Flow Rate 10/23/24 11:15 10/23/24 11:16 10/23/24 11:17 Temperature Pulse Rate 98 H 99 H 100 H Respiratory Rate 20 20 20 Blood Pressure Pulse Oximetry 68 L 67 L 75 L Oxygen Delivery Method Mechanical Ventilation Mechanical Ventilation Mechanical Ventilation Oxygen Flow Rate 10/23/24 11:18 10/23/24 11:19 10/23/24 11:20 Temperature Pulse Rate 101 H 103 H 102 H Respiratory Rate 25 H 20 20 Blood Pressure Pulse Oximetry 79 L 81 L 82 L Oxygen Delivery Method Mechanical Ventilation Mechanical Ventilation Mechanical Ventilation Oxygen Flow Rate 10/23/24 11:21 10/23/24 11:22 10/23/24 11:23 Temperature Pulse Rate 102 H 103 H 103 H Respiratory Rate 20 20 20 Blood Pressure Pulse Oximetry 83 L 82 L 80 L Oxygen Delivery Method Mechanical Ventilation Mechanical Ventilation Mechanical Ventilation Oxygen Flow Rate 10/23/24 11:24 10/23/24 11:25 10/23/24 11:26 Temperature Pulse Rate 104 H 104 H 104 H Respiratory Rate 20 20 20 Blood Pressure Pulse Oximetry 82 L 84 L 86 L Oxygen Delivery Method Mechanical Ventilation Mechanical Ventilation Mechanical Ventilation Oxygen Flow Rate 10/23/24 11:27 10/23/24 11:28 10/23/24 11:29 Temperature Pulse Rate 104 H 106 H 106 H Respiratory Rate 20 20 20 Blood Pressure Pulse Oximetry 89 L 90 L 91 Oxygen Delivery Method Mechanical Ventilation Mechanical Ventilation Mechanical Ventilation Oxygen Flow Rate 10/23/24 11:30 10/23/24 11:31 10/23/24 11:32 Temperature Pulse Rate 106 H 106 H 108 H Respiratory Rate 20 20 20 Blood Pressure Pulse Oximetry 92 92 93 Oxygen Delivery Method Mechanical Ventilation Mechanical Ventilation Mechanical Ventilation Oxygen Flow Rate 10/23/24 11:33 10/23/24 11:34 10/23/24 11:35 Temperature Pulse Rate 108 H 109 H 110 H Respiratory Rate 20 20 20 Blood Pressure Pulse Oximetry 93 94 94 Oxygen Delivery Method Mechanical Ventilation Mechanical Ventilation Mechanical Ventilation Oxygen Flow Rate 10/23/24 11:36 10/23/24 11:37 10/23/24 11:37 Temperature Pulse Rate 111 H 113 H Respiratory Rate 20 20 Blood Pressure 88/49 L Pulse Oximetry 95 95 Oxygen Delivery Method Mechanical Ventilation Mechanical Ventilation Oxygen Flow Rate 10/23/24 11:38 10/23/24 11:39 10/23/24 11:40 Temperature Pulse Rate 113 H 114 H 119 H Respiratory Rate 20 20 20 Blood Pressure Pulse Oximetry 95 96 96 Oxygen Delivery Method Transtracheal Catheter Mechanical Ventilation Mechanical Ventilation Oxygen Flow Rate 10/23/24 11:40 10/23/24 11:41 10/23/24 11:42 Temperature Pulse Rate 121 H 121 H Respiratory Rate 20 20 Blood Pressure 81/44 L Pulse Oximetry 95 95 Oxygen Delivery Method Mechanical Ventilation Mechanical Ventilation Oxygen Flow Rate 10/23/24 11:43 10/23/24 11:44 10/23/24 11:45 Temperature Pulse Rate 122 H 122 H Respiratory Rate 20 15 Blood Pressure 73/35 L Pulse Oximetry 96 96 Oxygen Delivery Method Mechanical Ventilation Mechanical Ventilation Oxygen Flow Rate 10/23/24 11:45 10/23/24 12:35 10/23/24 12:38 Temperature Pulse Rate 103 H 110 H Respiratory Rate 7 L 24 Blood Pressure 147/67 H Pulse Oximetry 91 98 Oxygen Delivery Method Mechanical Ventilation Mechanical Ventilation Oxygen Flow Rate 10/23/24 12:38 10/23/24 12:40 10/23/24 12:40 Temperature Pulse Rate 105 H 109 H Respiratory Rate 24 24 Blood Pressure 157/69 H Pulse Oximetry 99 99 Oxygen Delivery Method Mechanical Ventilation Mechanical Ventilation Oxygen Flow Rate 10/23/24 12:45 10/23/24 12:50 10/23/24 12:54 Temperature Pulse Rate 112 H 119 H Respiratory Rate 40 H 38 H Blood Pressure 133/61 Pulse Oximetry 98 97 Oxygen Delivery Method Mechanical Ventilation Mechanical Ventilation Oxygen Flow Rate 10/23/24 12:54 10/23/24 12:55 10/23/24 12:55 Temperature Pulse Rate 117 H 115 H Respiratory Rate 30 H 24 Blood Pressure 132/63 Pulse Oximetry 97 96 Oxygen Delivery Method Mechanical Ventilation Mechanical Ventilation Oxygen Flow Rate 10/23/24 13:00 10/23/24 13:00 10/23/24 13:05 Temperature Pulse Rate 109 H 108 H Respiratory Rate 42 H 41 H Blood Pressure 142/72 H Pulse Oximetry 96 95 Oxygen Delivery Method Mechanical Ventilation Mechanical Ventilation Oxygen Flow Rate 10/23/24 13:07 10/23/24 13:07 10/23/24 13:10 Temperature Pulse Rate 108 H 101 H Respiratory Rate 46 H 46 H Blood Pressure 140/64 Pulse Oximetry 95 95 Oxygen Delivery Method Mechanical Ventilation Mechanical Ventilation Oxygen Flow Rate 10/23/24 13:10 10/23/24 13:15 10/23/24 13:15 Temperature Pulse Rate 103 H Respiratory Rate 49 H Blood Pressure 147/68 H 152/93 H Pulse Oximetry 95 Oxygen Delivery Method Mechanical Ventilation Oxygen Flow Rate 10/23/24 13:20 10/23/24 13:20 10/23/24 13:25 Temperature 98.1 F Pulse Rate 109 H 111 H Respiratory Rate 45 H 41 H Blood Pressure 158/111 H Pulse Oximetry 95 92 Oxygen Delivery Method Mechanical Ventilation Mechanical Ventilation Oxygen Flow Rate 10/23/24 13:26 10/23/24 13:26 10/23/24 13:30 Temperature 98.2 F 98.4 F Pulse Rate 109 H 102 H Respiratory Rate 47 H 44 H Blood Pressure 163/144 H Pulse Oximetry 92 91 Oxygen Delivery Method Mechanical Ventilation Mechanical Ventilation Oxygen Flow Rate 10/23/24 13:33 10/23/24 13:33 10/23/24 13:35 Temperature 98.6 F Pulse Rate 97 H Respiratory Rate 26 H Blood Pressure 102/52 L 100/54 L Pulse Oximetry 90 L Oxygen Delivery Method Mechanical Ventilation Oxygen Flow Rate 10/23/24 13:35 10/23/24 13:40 10/23/24 13:40 Temperature 98.8 F 99.0 F Pulse Rate 94 H 91 H Respiratory Rate 28 H 35 H Blood Pressure 121/57 L Pulse Oximetry 92 94 Oxygen Delivery Method Mechanical Ventilation Mechanical Ventilation Oxygen Flow Rate 10/23/24 13:45 10/23/24 13:45 10/23/24 13:50 Temperature 99.0 F 98.4 F Pulse Rate 100 H 82 Respiratory Rate 38 H 38 H Blood Pressure 119/60 Pulse Oximetry 91 84 L Oxygen Delivery Method Mechanical Ventilation Mechanical Ventilation Oxygen Flow Rate 10/23/24 13:51 10/23/24 13:51 10/23/24 13:55 Temperature 98.8 F Pulse Rate 79 Respiratory Rate 33 H Blood Pressure 94/52 L 92/54 L Pulse Oximetry 84 L Oxygen Delivery Method Mechanical Ventilation Oxygen Flow Rate 10/23/24 13:55 10/23/24 14:20 10/23/24 14:20 Temperature 99.1 F 99.5 F Pulse Rate 75 82 Respiratory Rate 29 H 40 H Blood Pressure 92/50 L Pulse Oximetry 100 92 Oxygen Delivery Method Mechanical Ventilation Mechanical Ventilation Oxygen Flow Rate 10/23/24 14:22 10/23/24 14:22 10/23/24 14:24 Temperature 99.5 F Pulse Rate 80 Respiratory Rate 38 H Blood Pressure 84/48 L 83/47 L Pulse Oximetry 92 Oxygen Delivery Method Mechanical Ventilation Oxygen Flow Rate 10/23/24 14:24 10/23/24 14:25 10/23/24 14:26 Temperature 99.5 F 99.5 F Pulse Rate 73 73 Respiratory Rate 36 H 35 H Blood Pressure 84/48 L Pulse Oximetry 90 L 90 L Oxygen Delivery Method Mechanical Ventilation Mechanical Ventilation Oxygen Flow Rate 10/23/24 14:26 10/23/24 14:27 10/23/24 14:27 Temperature 99.5 F 99.7 F H Pulse Rate 73 78 Respiratory Rate 29 H 36 H Blood Pressure 95/51 L Pulse Oximetry 89 L 89 L Oxygen Delivery Method Mechanical Ventilation Mechanical Ventilation Oxygen Flow Rate 10/23/24 14:28 10/23/24 14:28 10/23/24 14:30 Temperature 99.7 F H Pulse Rate 80 Respiratory Rate 35 H Blood Pressure 101/52 L 114/55 L Pulse Oximetry 90 L Oxygen Delivery Method Mechanical Ventilation Oxygen Flow Rate 10/23/24 14:30 10/23/24 14:32 10/23/24 14:32 Temperature 99.7 F H 99.7 F H Pulse Rate 80 82 Respiratory Rate 41 H 39 H Blood Pressure 118/59 L Pulse Oximetry 90 L 91 Oxygen Delivery Method Mechanical Ventilation Mechanical Ventilation Oxygen Flow Rate 10/23/24 14:35 10/23/24 14:40 10/23/24 14:45 Temperature 99.5 F 99.5 F 99.5 F Pulse Rate 86 89 83 Respiratory Rate 35 H 35 H 30 H Blood Pressure Pulse Oximetry 91 88 L 90 L Oxygen Delivery Method Mechanical Ventilation Mechanical Ventilation Mechanical Ventilation Oxygen Flow Rate 10/23/24 14:46 10/23/24 14:46 10/23/24 14:48 Temperature 99.5 F Pulse Rate 87 Respiratory Rate 25 H Blood Pressure 92/54 L 116/56 L Pulse Oximetry 94 Oxygen Delivery Method Mechanical Ventilation Oxygen Flow Rate 10/23/24 14:48 10/23/24 14:50 10/23/24 14:50 Temperature 99.5 F 99.5 F Pulse Rate 86 86 Respiratory Rate 30 H 39 H Blood Pressure 136/63 Pulse Oximetry 97 97 Oxygen Delivery Method Mechanical Ventilation Mechanical Ventilation Oxygen Flow Rate 10/23/24 14:52 10/23/24 14:52 10/23/24 14:54 Temperature 99.5 F 99.5 F Pulse Rate 88 88 Respiratory Rate 34 H 31 H Blood Pressure 138/64 Pulse Oximetry 97 97 Oxygen Delivery Method Mechanical Ventilation Mechanical Ventilation Oxygen Flow Rate 10/23/24 14:54 10/23/24 14:55 10/23/24 14:56 Temperature 99.5 F Pulse Rate 87 Respiratory Rate 26 H Blood Pressure 142/65 H 145/68 H Pulse Oximetry 97 Oxygen Delivery Method Mechanical Ventilation Oxygen Flow Rate 10/23/24 14:56 10/23/24 14:58 10/23/24 14:58 Temperature 99.5 F 99.3 F Pulse Rate 86 84 Respiratory Rate 40 H 33 H Blood Pressure 139/65 Pulse Oximetry 97 97 Oxygen Delivery Method Mechanical Ventilation Mechanical Ventilation Oxygen Flow Rate 10/23/24 15:00 10/23/24 15:00 10/23/24 15:05 Temperature 99.3 F 99.3 F Pulse Rate 83 92 H Respiratory Rate 30 H 45 H Blood Pressure 137/59 L Pulse Oximetry 96 94 Oxygen Delivery Method Mechanical Ventilation Mechanical Ventilation Oxygen Flow Rate 10/23/24 15:05 10/23/24 15:06 10/23/24 15:06 Temperature 99.3 F Pulse Rate 93 H Respiratory Rate 57 H Blood Pressure 145/69 H 140/65 Pulse Oximetry 93 Oxygen Delivery Method Mechanical Ventilation Oxygen Flow Rate 10/23/24 15:08 10/23/24 15:08 10/23/24 15:10 Temperature 99.3 F Pulse Rate 94 H Respiratory Rate 44 H Blood Pressure 131/56 L 138/62 Pulse Oximetry 95 Oxygen Delivery Method Mechanical Ventilation Oxygen Flow Rate 10/23/24 15:10 10/23/24 15:12 10/23/24 15:12 Temperature 99.1 F 99.1 F Pulse Rate 97 H 90 Respiratory Rate 35 H 45 H Blood Pressure 127/57 L Pulse Oximetry 94 94 Oxygen Delivery Method Mechanical Ventilation Mechanical Ventilation Oxygen Flow Rate 10/23/24 15:14 10/23/24 15:14 10/23/24 15:15 Temperature 99.1 F 99.1 F Pulse Rate 99 H 99 H Respiratory Rate 46 H 44 H Blood Pressure 121/58 L Pulse Oximetry 95 95 Oxygen Delivery Method Mechanical Ventilation Mechanical Ventilation Oxygen Flow Rate 10/23/24 15:17 10/23/24 15:17 10/23/24 15:18 Temperature 99.1 F Pulse Rate 94 H Respiratory Rate 44 H Blood Pressure 114/62 115/56 L Pulse Oximetry 94 Oxygen Delivery Method Mechanical Ventilation Oxygen Flow Rate 10/23/24 15:18 10/23/24 15:20 10/23/24 15:23 Temperature 99.1 F 99.1 F Pulse Rate 94 H 96 H Respiratory Rate 53 H 47 H Blood Pressure 141/79 H Pulse Oximetry 94 90 L Oxygen Delivery Method Mechanical Ventilation Mechanical Ventilation Oxygen Flow Rate 10/23/24 15:23 10/23/24 15:24 10/23/24 15:24 Temperature 99.1 F 99.1 F Pulse Rate 92 H 95 H Respiratory Rate 36 H 38 H Blood Pressure 114/59 L Pulse Oximetry 90 L 91 Oxygen Delivery Method Oxygen Flow Rate 10/23/24 15:25 10/23/24 15:26 10/23/24 15:26 Temperature 99.1 F 99.1 F Pulse Rate 94 H 95 H Respiratory Rate 36 H 35 H Blood Pressure 114/59 L Pulse Oximetry 92 93 Oxygen Delivery Method Oxygen Flow Rate 10/23/24 15:28 10/23/24 15:28 10/23/24 15:30 Temperature 99.1 F Pulse Rate 95 H Respiratory Rate 43 H Blood Pressure 121/58 L 121/57 L Pulse Oximetry 94 Oxygen Delivery Method Oxygen Flow Rate 10/23/24 15:30 10/23/24 15:32 10/23/24 15:32 Temperature 99.1 F 99.1 F Pulse Rate 94 H 95 H Respiratory Rate 42 H 45 H Blood Pressure 116/58 L Pulse Oximetry 95 94 Oxygen Delivery Method Oxygen Flow Rate 10/23/24 15:34 10/23/24 15:34 10/23/24 15:35 Temperature 99.1 F 99.1 F Pulse Rate 96 H 97 H Respiratory Rate 41 H 59 H Blood Pressure 117/56 L Pulse Oximetry 94 94 Oxygen Delivery Method Oxygen Flow Rate 10/23/24 15:37 10/23/24 15:37 10/23/24 15:39 Temperature 99.1 F Pulse Rate 96 H Respiratory Rate Blood Pressure 101/53 L 94/48 L Pulse Oximetry 94 Oxygen Delivery Method Oxygen Flow Rate 10/23/24 15:39 10/23/24 15:40 10/23/24 15:40 Temperature 99.1 F 99.1 F Pulse Rate 159 H 87 Respiratory Rate Blood Pressure 95/51 L Pulse Oximetry 95 95 Oxygen Delivery Method Oxygen Flow Rate 10/23/24 15:42 10/23/24 15:42 10/23/24 15:44 Temperature 99.1 F 99.1 F Pulse Rate 90 88 Respiratory Rate Blood Pressure 131/59 L Pulse Oximetry 96 96 Oxygen Delivery Method Oxygen Flow Rate 10/23/24 15:44 10/23/24 15:45 10/23/24 15:46 Temperature 99.1 F Pulse Rate 85 Respiratory Rate Blood Pressure 140/64 138/62 Pulse Oximetry 97 Oxygen Delivery Method Oxygen Flow Rate 10/23/24 15:46 10/23/24 15:48 10/23/24 15:48 Temperature 99.1 F 99.1 F Pulse Rate 80 97 H Respiratory Rate Blood Pressure 133/62 Pulse Oximetry 97 98 Oxygen Delivery Method Oxygen Flow Rate MDM - SOB/Dyspnea Lab Data 10/23/24 13:08 10/23/24 14:23 Labs: Lab Results 10/23/24 10/23/24 10/23/24 Range/Units 07:05 07:44 12:06 WBC 10.5 (4.5-11.0) X10^3/uL RBC 3.97 L (4.5-5.9) X10^6/uL Hgb 13.5 (13.5-17.5) g/dL Hct 37.8 L (41-53) % MCV 95.2 (80-100) fL MCH 34.0 (26-34) PG MCHC 35.7 (30-36) % RDW 13.8 (11.6-14.8) % Plt Count 127 L (150-400) X10^3/uL Neut % (Auto) 83.3 H (50-75) % Lymph % (Auto) 5.3 L (25-40) % Cecil % (Auto) 10.6 (3-14) % Eos % (Auto) 0.2 L (2-4) % Baso % (Auto) 0.6 (0-2) % Neut # (Auto) 8700 H (3815-1147) /uL Lymph # (Auto) 600 L (8013-3053) /uL Cecil # (Auto) 1100 H (0-900) /uL Eos # (Auto) 0 (0-450) /uL Baso # (Auto) 100 (0-100) /uL PT 13.9 H (9.4-12.5) SECONDS INR 1.2 (0.9-1.3) APTT 31 (25.1-36.5) SECONDS ABG Sample Site Right radial ABG pH 7.10 L* (7.35-7.45) ABG pCO2 67.2 H* (35-45) mmHg ABG pO2 182 H (80-100) mmHg ABG HCO3 21 L (23-27) mmol/L ABG Total CO2 21 L (23-27) mmol/L ABG O2 Saturation 99 (95-100) % ABG Base Excess -10.4 L (-2-3) mmol/L Reji Test Positive Respiration Rate 20 Mode of Support Pressure reg vol con FiO2 % 100.0 % % PEEP or CPAP 8 Sodium 113 L* 112 L* (137-145) mmol/L Potassium 4.8 4.9 (3.4-5.1) mmol/L Chloride 79 L 80 L (98-107) mmol/L Carbon Dioxide 20 L 20 L (22-32) mmol/L BUN 8 L 9 (9-20) mg/dL Creatinine 0.70 0.63 L (0.66-1.25) mg/dL Estimated GFR > 60 > 60 (>60) mL/min BUN/Creatinine Ratio 11.4 14.3 (6-22) Glucose 128 H 125 H (70-99) mg/dL Calcium 7.9 L 7.8 L (8.4-10.2) mg/dL Total Bilirubin 2.6 H (0.2-1.3) mg/dL AST 191 H (17-59) IU/L ALT 92 H (<50) IU/L Alkaline Phosphatase 83 (38-126) U/L Total Creatine Kinase 3564 H (55-170) U/L Troponin I < 0.012 (0.01-0.034) ng/mL NT-Pro-B Natriuret Pep 195 H (<125) pg/mL Total Protein 7.6 (6.3-8.2) g/dL Albumin 4.2 (3.5-5.0) g/dL Globulin 3.4 (1.7-4.1) g/dL Albumin/Globulin Ratio 1.2 (1.0-2.8) Lipase 99 (23-300) U/L 10/23/24 10/23/24 10/23/24 Range/Units 13:08 14:23 14:41 WBC 11.2 H (4.5-11.0) X10^3/uL RBC 3.82 L (4.5-5.9) X10^6/uL Hgb 12.9 L (13.5-17.5) g/dL Hct 36.9 L (41-53) % MCV 96.6 (80-100) fL MCH 33.9 (26-34) PG MCHC 35.1 (30-36) % RDW 14.2 (11.6-14.8) % Plt Count 143 L (150-400) X10^3/uL Neut % (Auto) 91.5 H (50-75) % Lymph % (Auto) 3.8 L (25-40) % Cecil % (Auto) 4.0 (3-14) % Eos % (Auto) 0.1 L (2-4) % Baso % (Auto) 0.6 (0-2) % Neut # (Auto) 91162 H (1600-0378) /uL Lymph # (Auto) 400 L (6776-2656) /uL Cecil # (Auto) 400 (0-900) /uL Eos # (Auto) 0 (0-450) /uL Baso # (Auto) 100 (0-100) /uL PT (9.4-12.5) SECONDS INR (0.9-1.3) APTT (25.1-36.5) SECONDS ABG Sample Site Right radial ABG pH 6.96 L* (7.35-7.45) ABG pCO2 102.7 H* (35-45) mmHg ABG pO2 72 L (80-100) mmHg ABG HCO3 23 (23-27) mmol/L ABG Total CO2 24 (23-27) mmol/L ABG O2 Saturation 80 L* (95-100) % ABG Base Excess -11.7 L (-2-3) mmol/L Reji Test Positive Respiration Rate Mode of Support FiO2 % % PEEP or CPAP Sodium 112 L* (137-145) mmol/L Potassium 6.3 H* D 6.4 H* (3.4-5.1) mmol/L Chloride 82 L (98-107) mmol/L Carbon Dioxide 21 L (22-32) mmol/L BUN 12 (9-20) mg/dL Creatinine 0.89 (0.66-1.25) mg/dL Estimated GFR > 60 (>60) mL/min BUN/Creatinine Ratio 13.5 (6-22) Glucose 156 H (70-99) mg/dL Calcium 7.0 L (8.4-10.2) mg/dL Total Bilirubin 2.8 H (0.2-1.3) mg/dL AST 261 H (17-59) IU/L ALT 96 H (<50) IU/L Alkaline Phosphatase 38 (38-126) U/L Total Creatine Kinase 2765 H (55-170) U/L Troponin I 0.023 (0.01-0.034) ng/mL NT-Pro-B Natriuret Pep (<125) pg/mL Total Protein 7.3 (6.3-8.2) g/dL Albumin 4.0 (3.5-5.0) g/dL Globulin 3.3 (1.7-4.1) g/dL Albumin/Globulin Ratio 1.2 (1.0-2.8) Lipase (23-300) U/L Urine Dip Bedside Urine Glucose 500 mg/dl Bedside Urine Bilirubin - Negative Bedside Urine Ketone ++ 40 Urine Specific [place] 1.025 Bedside Urine Occult Blood ++ Bedside Urine pH 6.0 Bedside Urine Protein ++ 100 Bedside Urine Urobilinogen 1+ 2mg Bedside Urine Nitrite - Negative Bedside Urine Leukocytes - Negative Esterase ECG Data Attestation: I personally reviewed and interpreted this ECG as follows: Interpretation: Sinus rhythm marked sinus arrhythmia rate 89 FL 170 QRS of 92 QTC of 433. No acute ST elevation. Nonspecific change. MDM Narrative Medical decision making narrative: 44-year-old male presents with complaint of swelling in his tongue and airway for the past 3 days slowly progressive. Patient does have a history of lisinopril for several years also on furosemide fairly recently. Suspect angioedema. Patient was given I Jasviradmoral, Pepcid, Solu-Medrol and epinephrine, TXA and racemic epi. Patient at this moment is maintaining airway discussed if any worsening we will need to intubate set it up as at bedside spoke with the anesthesia patient's body habitus would make intubation difficult along with his angioedema. Dr. Arambula from anesthesia at bedside at 0735. Will continue to monitor, airway set up at bedside and see if medications are effective. On rechecked at 0748 patient still has symptoms his speech seems to be improved somewhat although he was still has some slight hoarseness it seems to be resolving he was still appreciates his symptoms no resolution was able to speak in much longer sentences. Rechecked at 0755 no worsening reviewed patient sodium is quite low, patient states he was not had similar in the past. We will repeat labs. Rechecked at 0847, patient was still little bit diaphoretic he states he feels improved from when he came in, continue with close monitoring. Continue to rechecked patient swelling actually improved in his tongue I can see the top of his palate, he has some abrasions/laceration on the right lateral oral tongue. He is not diaphoretic he states he was feeling improved but has a little bit more audible changes. Re-contacted anesthesia who came down and re-evaluated the patient for potential intubation. Patient states he was feeling improved but on exam I feel this might be questionable. Anesthesia in the department, decision was made to intubate, as moving forward patient had worsening color changes did attempt some CPAP which was not helpful while setting up. Patient coded and had CPR with 2 rounds of epinephrine, patient was intubated by anesthesia. Pulses were regained. Patient initially was hypertensive but over time blood pressure decreased although patient is paralyzed and on propofol. Norepinephrine was initiated but plan to switch over to ketamine for sedation. Patient had cuff leak with the ET tube and was switched out by anesthesia without any significant events or complications. Patient was then felt stable enough to go for CT to evaluate for other potential sources as his chest x-ray initial was possibly tilted repeat shows mediastinum appears widened. Repeat imaging chest x-ray does not show any major progressive changes. Spoke with Dr. Sullivan, slate roofer at [facility] for transport. CT imaging were still pending. Does not wish for us to give any additional fluids as patient is sodium is still low at 112 they will address on arrival. ABG shows patient is respiratory acidosis slight metabolic component. We will recheck approximately 45 minutes to see what adjustments we need to make for ventilator settings. Patient has had some difficulty with sedation and hypotension switched to ketamine, was still having issues added propofol back but with nor epi, so giving fentanyl. Discussed giving rocuronium again but patient is going to be transported and will wear off EN route. After discussion decision was made to give an additional dose of recommended here in the department just prior to transport. Repeat labs also noted potassium was likely hemolyzed but was repeated still hemolyzed but elevated at 6.4, discussed with the EMS we will give medications prior to transport. Reviewed CT imaging IV antibiotics were initiated. Labs show white count of 10 hemoglobin of 13 platelets of 127, INR is 1.1 sodium 113 potassium 4.8 chloride 79 CO2 is 20 with a BUN 8, creatinine of 0.7 glucose of 128 calcium 7.9 bilirubin is 2.6 with a AST 191 ALT of 92. Lipase is 99. Repeat BNP confirms the sodium with 112 chloride 80 CO2 of 20 potassium is 4 9. Total CK is 10/12/2063, troponin is negative less than 0.012 with a BNP of 195. Chest x-ray shows cardiomegaly mild congestion no definite focal infiltrate. No pneumothorax. Head CT shows no acute change CTA chest abdomen pelvis shows generalized anasarca no aortic aneurysm or acute aortic syndrome. Extensive airspace opacities in bilateral lung choi suggesting bilateral multilobular infiltrates worse in bilateral lower lobes. No significant pleural effusion no pneumothorax. ET tube is above the kathe. Mild cardiomegaly no pericardial effusion. Severe hepatic steatosis, no discrete hepatic lesion. No acute inflammatory process seen abdomen or pelvis. Soft tissue neck endotracheal tube in good position minimal right level a to adenopathy probably reactive. Critical Care Time Critical Care Time Critical Care Time: Yes Total Critical Care Time: 120 Attestation: The high probability of a clinically significant, sudden or life threatening deterioration of the airway system(s) required my full and direct attention, intervention and personal management. The aggregate critical care time was [--] minutes. This time is in addition to time spent performing reported procedures but includes the following: [x] Data Review and interpretation [x] Patient assessment and monitoring of vital signs [x] Documentation [x] Medication orders and management Discharge Plan Departure Patient Disposition: Xfer Acute Care Hospital Clinical Impression: Angioedema, Hyponatremia, Pneumonia Prescriptions: No Action testosterone cypionate 200 mg/mL oil IM lisinopril 20 mg tablet 20 mg PO DAILY hydroxyzine HCl 25 mg tablet 25 mg PO BID doxycycline hyclate 100 mg capsule 100 mg PO BID Qty: 14 0RF benzonatate 100 mg capsule 200 mg PO TID PRN (Reason: cough) Qty: 20 0RF Referrals: Carlos Gutierrez MD [Primary Care Provider, Family Practice]
[2024-10-23 07:21] LABS: Add Manual Diff / Slide Review NO; Basophils Absolute Auto 100 /uL (0-100); Basophils Percent Auto 0.6 % (0-2); Eosinophils Absolute Auto 0 /uL (0-450); Eosinophils Percent Auto 0.2 % (2-4); Hematocrit 37.8 % (41-53); Hemoglobin 13.5 g/dL (13.5-17.5); Lymphocytes Absolute Auto 600 /uL (1100-4500); Lymphocytes Percent Auto 5.3 % (25-40); Mean Corpuscular HGB Conc 35.7 % (30-36); Mean Corpuscular Volume 95.2 fL (80-100); Monocytes Absolute Auto 1100 /uL (0-900); Monocytes Percent Auto 10.6 % (3-14); Neutrophils Absolute Auto 8700 /uL (1500-7000); Neutrophils Percent Auto 83.3 % (50-75); Platelet Count 127 X10^3/uL (150-400); Red Blood Cell Count 3.97 X10^6/uL (4.5-5.9); Red Cell Distribution Width 13.8 % (11.6-14.8); White Blood Cell Count 10.5 X10^3/uL (4.5-11.0)
[2024-10-23] MEDS: FAMOTIDINE 20 MG/2 ML VIAL 40 MG IV (07:24)
[2024-10-23] MEDS: diphenhydrAMINE 50 MG/ML VIAL IV (07:24)
[2024-10-23] MEDS: EPINEPHrine 1 MG/ML 0.5 MG IM (07:24)
[2024-10-23] MEDS: methylPREDNISolone 125 MG/2 ML VIAL IV (07:25)
[2024-10-23 07:30] LABS: Alanine Aminotransferase 92 IU/L (<50); Albumin 4.2 g/dL (3.5-5.0); Albumin Globulin Ratio 1.2 (1.0-2.8); Alkaline Phosphatase 83 U/L (38-126); Aspartate Aminotransferase 191 IU/L (17-59); BUN Creatinine Ratio 11.4 (6-22); Bilirubin Total 2.6 mg/dL (0.2-1.3); Blood Urea Nitrogen 8 mg/dL (9-20); Calcium 7.9 mg/dL (8.4-10.2); Carbon Dioxide 20 mmol/L (22-32); Chloride 79 mmol/L (98-107); Estimated Glomerular Filt Rate > 60 mL/min (>60); Globulin 3.4 g/dL (1.7-4.1); Glucose 128 mg/dL (70-99); HEMOLYSIS < 15 (0-50); Lipase 99 U/L (23-300); Potassium 4.8 mmol/L (3.4-5.1); Total Protein 7.6 g/dL (6.3-8.2)
[2024-10-23] MEDS: SODIUM CHLORIDE 0.9% 1,000 ML 150 ML IV (07:33)
[2024-10-23] MEDS: TRANEXAMIC ACID 1,000 MG in SODIUM CHLORIDE 0.9% 100 ML 200 MG IV (07:33)
[2024-10-23 07:35] LABS: Sodium 113 mmol/L (137-145)
[2024-10-23 07:39] LABS: PTT Partial Thromboplastin Tim 31 SECONDS (25.1-36.5)
[2024-10-23 07:40] LABS: INR 1.2 (0.9-1.3); Prothrombin Time 13.9 SECONDS (9.4-12.5)
[2024-10-23 07:43] LABS: NT-proBNP (BNP-Adult 18+) 195 pg/mL (<125); Troponin I < 0.012 ng/mL (0.01-0.034)
[2024-10-23 07:45] LABS: Creatine Kinase 3564 U/L (55-170)
[2024-10-23 08:03] LABS: BUN Creatinine Ratio 14.3 (6-22); Blood Urea Nitrogen 9 mg/dL (9-20); Calcium 7.8 mg/dL (8.4-10.2); Carbon Dioxide 20 mmol/L (22-32); Chloride 80 mmol/L (98-107); Estimated Glomerular Filt Rate > 60 mL/min (>60); Glucose 125 mg/dL (70-99); HEMOLYSIS 28 (0-50); Potassium 4.9 mmol/L (3.4-5.1)
[2024-10-23 08:04] LABS: Sodium 112 mmol/L (137-145)
[2024-10-23] MEDS: RACEPINEPHRINE 0.5 ML NEB INH (08:16)
[2024-10-23] MEDS: GLYCOPYRROLATE 0.4 MG/2 ML VIAL 0.2 MG IM (08:31)
--- NOTE | 2024-10-23 09:13 | PC.NURSE ---
Patient increased blood pressure is known by Dr. Corona and no new orders regarding that was given.
[2024-10-23] MEDS: SODIUM CHLORIDE 3 % 100 ML 600 ML IV (09:52)
--- NOTE | 2024-10-23 10:21 | PC.NURSE ---
Patient attempted to urinate with urinal without success. Patient is unsure if he urinated this morning but is sure that he urinated last night. This RN unable to bladder scan patient as abdomen is firm, large and distended. Dr. Corona informed. Provider accessed patient and asked for respiratory therapy to place patient on CPAP. This RN will reattempt to bladder scan when patient is able to lay back with CPAP.
[2024-10-23] MEDS: diazePAM 10 MG/2 ML SYRINGE IV (10:42)
--- NOTE | 2024-10-23 11:15 | DI.CT.S_ITS ---
PROCEDURE: CT SOFT TISSUE NECK W CON INDICATIONS: angioedema, low sodium. TECHNIQUE: After the administration of intravenous contrast, 3.0 mm axial sections acquired from the sella to the aortic arch. Additional oblique axial 3.0 mm sections acquired through the pharynx. 3 mm thick coronal and sagittal reformats were generated. For radiation dose reduction, the following was used: automated exposure control. COMPARISON: [facility], CT, CT ANGIO CHEST ABDOMEN PELVIS, 10/23/2024, 12:40. FINDINGS: Image quality: Excellent. Lymph nodes: Right level 2A adenopathy measures 1.1 x 1.5 cm. Additional smaller scattered bilateral deep cervical nodes Vessels: Visualized vasculature appears patent. Neck spaces: ET tube in good position The oropharynx, nasopharynx, and pharynx demonstrate no mucosal lesions. The vocal cords, false vocal cords, pyriform sinuses, epiglottis, vallecula, and tongue base all appear normal. Extramucosal spaces appear unremarkable. Glands: The parotid and submandibular glands appear normal. Thyroid gland unremarkable. Miscellaneous: Visualized brain and orbits appear normal. Superficial soft tissues appear normal. Bones: No suspicious bony lesions. Visualized sinuses and mastoids appear unremarkable. IMPRESSION: Endotracheal tube in good position. Minimal right level 2A adenopathy, probably reactive. Further results detailed in concurrent CT chest abdomen and pelvis Approved by: Nico Mensah M.D. on 10/23/2024 at 12:48
--- NOTE | 2024-10-23 11:15 | DI.CT.S_ITS ---
PROCEDURE: CT ANGIO CHEST ABDOMEN PELVIS INDICATIONS: angioedema, low sodium. TECHNIQUE: Precontrast 5 mm thick sections acquired from the lung apices to the iliac crests. After the administration of intravenous contrast, 2.5 mm thick sections again acquired from the lung apices to the iliac crests. Maximum intensity projection (MIP) oblique sagittal and coronal reformats were then acquired. For radiation dose reduction, the following was used: automated exposure control. COMPARISON: None. FINDINGS: Image quality: Diagnostic. AORTA: No aortic aneurysm. No acute aortic syndrome. CHEST: Lower Neck: No enlarged lymph nodes. Thyroid: Small sub cm hypodense nodule is seen in right thyroid lobe. Axillae: No enlarged lymph nodes. Chest Wall: Unremarkable. Lungs and Pleura: No pneumothorax or pleural effusions. Moderate size airspace opacities are seen in posterior aspect of bilateral lower lobe extending to bilateral infrahilar region. Small to moderate size airspace opacity in right middle lobe is also seen extending to right hilar region. Smaller airspace opacities also seen in posterior medial aspect of bilateral upper lobes. Patient is intubated, ETT tip is above the kathe. Heart: Heart size is enlarged. No pericardial effusion. Thoracic Vessels: Pulmonary arteries demonstrate normal size. Mediastinum and Kerry: No enlarged lymph nodes. Esophagus: No wall thickening. No hiatal hernia. ABDOMEN: Liver: No solid mass. Severe hepatic steatosis. Gallbladder: No radiopaque gallstones or wall thickening. Biliary ducts: No biliary dilation. Pancreas: No ductal dilation. Spleen: Size is within normal limits. Adrenal Glands: No adrenal nodules. Kidneys and Ureters: No hydronephrosis. No solid mass. No complex renal cystic lesion which requires follow up. Stomach and Bowel: Normal colonic caliber, without significant wall thickening. No evidence of acute appendicitis or diverticulitis. No abscess collection. Peritoneum: No abnormal intraperitoneal fluid. No free air. Ventral Wall: No hernia. Generalized anasarca is seen. Abdominal Nodes: No retroperitoneal or mesenteric adenopathy by size criteria. Vessels: Inferior vena cava is normal in size. PELVIS: Pelvic Organs: Unremarkable. Bladder: Unremarkable. Pelvic Nodes: No enlarged lymph nodes. Miscellaneous: No inguinal hernias are seen. Bones: No aggressive appearing bony lesions. IMPRESSION: 1. Generalized anasarca. No aortic aneurysm or acute aortic syndrome. 2. Extensive airspace opacities in bilateral lung choi suggestive of bilateral multilobar infiltrates worse in bilateral lower lobes. No significant pleural effusion. No pneumothorax. ETT tip is above the kathe. 3. Mild cardiomegaly, no pericardial effusion. No gross mediastinal or hilar lymphadenopathy. 4. Severe hepatic steatosis, no discrete hepatic lesion. 5. No acute inflammatory process is seen in abdomen or pelvis. Dictated by: Mason Skinner M.D. on 10/23/2024 at 13:25 Approved by: Mason Skinner M.D. on 10/23/2024 at 14:04
--- NOTE | 2024-10-23 11:15 | DI.CT.S_ITS ---
PROCEDURE: CT HEAD/BRAIN WO CON INDICATIONS: angioedema, low sodium. TECHNIQUE: Noncontrast 4.5 mm thick angled axial sections acquired from the foramen magnum to the vertex, with coronal and sagittal reformats. For radiation dose reduction, the following was used: automated exposure control, adjustment of mA and/or kV according to patient size. COMPARISON: [facility], CT, CT SOFT TISSUE NECK W CON, 10/23/2024, 12:40. [facility], CT, CT ANGIO CHEST ABDOMEN PELVIS, 10/23/2024, 12:40. FINDINGS: Image quality: Diagnostic. CSF spaces: Basal cisterns are patent. No extra-axial fluid collections. Ventricles are normal in size and shape. Brain: No midline shift. No intracranial mass effect or hemorrhage. Rodarte- white matter interface is normal. Skull and face: Calvarium and visualized facial bones are intact, without suspicious lesions. Sinuses: Visualized sinuses and mastoids are clear. IMPRESSION: No imaging explanation is found for this patient's presenting symptoms. To the limits of this noncontrast study, no findings of intracranial masses or mass effect can be seen. No acute intracranial hemorrhage is seen. Dictated by: Louie Joshua M.D. on 10/23/2024 at 12:05 Approved by: Louie Joshua M.D. on 10/23/2024 at 12:05
--- NOTE | 2024-10-23 11:48 | DI.RAD.S_ITS ---
PROCEDURE: XR CHEST 1V INDICATIONS: switched out ETT TECHNIQUE: One view of the chest was acquired. COMPARISON: [facility], CR, XR CHEST 1V, 10/23/2024, 10:53. FINDINGS: Surgical changes and devices: ET tube 2.8 centimeters superior to the kathe. Lungs and pleura: Bibasilar and in perihilar lung opacities. No pleural effusions or pneumothorax. Mediastinum: Mediastinal contours appear normal. Heart is enlarged. Bones and chest wall: No suspicious bony lesions. Overlying soft tissues appear unremarkable. IMPRESSION: Bibasilar and perihilar lung opacities which could represent pulmonary edema and/or multifocal pneumonia. ET tube 2.8 centimeters above the kathe. Dictated by: Joyce Canseco MD, PhD on 10/23/2024 at 12:11 Approved by: Joyce Canseco MD, PhD on 10/23/2024 at 12:12
[2024-10-23] MEDS: NOREPINEPHRINE BITARTRATE/D5W 4 MG/250 ML PLAST..BAG 24 MG IV ×2 (11:59→13:09)
--- NOTE | 2024-10-23 12:04 | PC.NURSE ---
This RN started norepinephrine at ideal body weight of 64kg after talking to [facility] pharmacist who gave me that rate based on height.
--- NOTE | 2024-10-23 12:06 | PC.NURSE ---
This RN called and talked to pharmacist Rich for ketamine infusion. Dr. Corona asked this RN to stop propofol infusion once ketamine arrives and start that infusion instead.
[2024-10-23 12:13] LABS: Allen Test for ABG Passed? Positive; Base Excess ABG -10.4 mmol/L (-2-3); Blood Gas Collection Site Right Radial; Blood Gas Mode Pressure Reg Vol Con; HCO3 ABG 21 mmol/L (23-27); Oxygen Saturation ABG 99 % (95-100); PCO2 ABG 67.2 mmHg (35-45); PEEP 8; PO2 ABG 182 mmHg (80-100); Respiratory Rate 20; TCO2 ABG 21 mmol/L (23-27)
[2024-10-23] MEDS: KETAMINE IV (12:28)
[2024-10-23] MEDS: SODIUM CHLORIDE 0.9% IV (12:28)
--- NOTE | 2024-10-23 12:32 | PC.NURSE ---
This RN stopped propofol and started ketamine drip at 99kg based on consult with pharmacist ernie on starting weight for this patient.
--- NOTE | 2024-10-23 13:00 | P.PCN_ITS ---
Procedures Date/Time Date of procedure: 10/23/24 Time of procedure: 11:00 Intubation Time out performed: Yes Sedative: other (propofol 50mg) Paralytic: succinylcholine (100 mg) Laryngoscope: fiber optic video scope (glidescope hyperangle 4) ET tube size: 8 ET tube uncuffed: No Tube secured depth (cm): 22 Tube secured location: teeth Tube placement confirmation: visualized tube passing through cords, equal breath sounds bilaterally, no breath sounds over epigastrium and confirmation by capnometry Patient tolerated procedure: no complications Intubation complications: none Additional comments: called to ER to evaluate airway for possible intubation at 0726. pt admitted for angioedema 2/2 lisinopril. pt sitting upright in bed, able to speak in short sentences. tachypnea into 30's, sats 90%. pt sweating profusely. color pink. some grunting on exhalation, with what sounded like nasal congestion. pt with hypersalivation. consulted with primary MD in ER overseeing patient care. with their intervention at this time she does not feel he needs intubation, however if she does she would like anesthesia assist. rerounded on the patient at approx 0830, 0930, and 1030 with second anesthesia provider (Dante) present. at approx 1030 patient removed bipap mask, pt visibly anxious, color worsening and blueish tone to face. SpO2 probe broken and replaced. Bipap mask placed back on the patient. Sp0@84%, rising with mask back on to 88%. pt R AC IV out and L AC IV not dressed. RN able to resecure IV access. pt continued to verbalize anxiety and removed bipap mask. at this time pt experienced LOC. Sidra Silva was called. CPR started immediately. see code blue charting for more information. at 1058 meds pushed and DL with glidescope hyperangle 4. cormack lehane grade 1 view. due to tongue swelling some resistance with getting ETT in view, however successfully intubated rapidly with one attempt. color change immediately noted. b/s noted B throughout, however diminished. CXR taken. tube placement confirmed. at 1123 received call from ER. RT believes there is a leak in the cuff confirmed by endotrachel tube inflator and manometer. plan made to remove patient from the ventilator and exchange ETT over a bougie. 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 oral airway placed between teeth without damange to ensure clear passage of ETT balloon. bag and suction near by and glidescope ready in the event of an emergency. second anesthesia provider available as well. removed from ventilator. bougie inserted without resistance at 1144. initial ETT cuff deflated and passed over the bougie. new 8.0 ETT passed over the bougie. secured 22 at the teeth. bougie removed. capnography attached with postive change at 1145. pt placed back on ventilator. CXR ordered to confirm placement. initial review of CXR confirms placement of ett. for more information see pt ER charting.
[2024-10-23 13:29] LABS: Add Manual Diff / Slide Review NO; Basophils Absolute Auto 100 /uL (0-100); Basophils Percent Auto 0.6 % (0-2); Eosinophils Absolute Auto 0 /uL (0-450); Eosinophils Percent Auto 0.1 % (2-4); Hematocrit 36.9 % (41-53); Hemoglobin 12.9 g/dL (13.5-17.5); Lymphocytes Absolute Auto 400 /uL (1100-4500); Lymphocytes Percent Auto 3.8 % (25-40); Mean Corpuscular HGB Conc 35.1 % (30-36); Mean Corpuscular Hemoglobin 33.9 PG (26-34); Mean Corpuscular Volume 96.6 fL (80-100); Monocytes Absolute Auto 400 /uL (0-900); Neutrophils Absolute Auto 10200 /uL (1500-7000); Neutrophils Percent Auto 91.5 % (50-75); Platelet Count 143 X10^3/uL (150-400); Red Blood Cell Count 3.82 X10^6/uL (4.5-5.9); Red Cell Distribution Width 14.2 % (11.6-14.8); White Blood Cell Count 11.2 X10^3/uL (4.5-11.0)
[2024-10-23] MEDS: propofoL 200 MG/20 ML VIAL 100 MG IV (13:33)
--- NOTE | 2024-10-23 13:36 | PC.NURSE ---
Patient C02 is elevated. Respiratory therapist called Lizzie responded and assessed patient. This RN informed provider.
[2024-10-23 13:41] LABS: Alanine Aminotransferase 96 IU/L (<50); Albumin Globulin Ratio 1.2 (1.0-2.8); Alkaline Phosphatase 38 U/L (38-126); Aspartate Aminotransferase 261 IU/L (17-59); BUN Creatinine Ratio 13.5 (6-22); Bilirubin Total 2.8 mg/dL (0.2-1.3); Blood Urea Nitrogen 12 mg/dL (9-20); Carbon Dioxide 21 mmol/L (22-32); Chloride 82 mmol/L (98-107); Estimated Glomerular Filt Rate > 60 mL/min (>60); Globulin 3.3 g/dL (1.7-4.1); Glucose 156 mg/dL (70-99); Total Protein 7.3 g/dL (6.3-8.2)
[2024-10-23 13:44] LABS: Sodium 112 mmol/L (137-145)
[2024-10-23 13:45] LABS: Potassium 6.3 mmol/L (3.4-5.1)
[2024-10-23] MEDS: diazePAM 10 MG/2 ML SYRINGE 5 MG IV ×2 (13:47→15:44)
[2024-10-23 13:48] LABS: Creatine Kinase 2765 U/L (55-170)
[2024-10-23 13:49] LABS: HEMOLYSIS 269 (0-50)
--- NOTE | 2024-10-23 13:50 | PC.NURSE ---
Patient pulse ox dropped this RN called respiratory therapy Anayeli and patient head raised. Patient tube suctioned by respiratory therapist.
[2024-10-23 13:53] LABS: Troponin I 0.023 ng/mL (0.01-0.034)
[2024-10-23] MEDS: propofoL 1,000 MG/100 ML VIAL 2.97 MG IV (14:22)
[2024-10-23 14:38] LABS: HEMOLYSIS 121 (0-50)
[2024-10-23 14:41] LABS: Potassium 6.4 mmol/L (3.4-5.1)
[2024-10-23 14:47] LABS: Base Excess ABG -11.7 mmol/L (-2-3); HCO3 ABG 23 mmol/L (23-27); Oxygen Saturation ABG 80 % (95-100); PCO2 ABG 102.7 mmHg (35-45); PO2 ABG 72 mmHg (80-100); TCO2 ABG 24 mmol/L (23-27); pH ABG 6.96 (7.35-7.45)
--- NOTE | 2024-10-23 14:56 | PC.NURSE ---
Patient only has 2 lines and zosyn is not compatible so Dr. Corona informed and ordering ceftriaxone instead.
[2024-10-23] MEDS: fentaNYL 1,000 MCG in DEXTROSE 5% IN WATER 230 ML 17.325 MCG IV (15:01)
[2024-10-23] MEDS: CALCIUM GLUCONATE 4.65 MEQ in SODIUM CHLORIDE 0.9% 50 ML 180 MEQ IV (15:01)
[2024-10-23] MEDS: FUROSEMIDE 40 MG/4 ML VIAL IV (15:10)
[2024-10-23] MEDS: SODIUM BICARB 8.4% SYRINGE 50 MEQ IV (15:12)
[2024-10-23] MEDS: DEXTROSE 50 % IN WATER 25 GM/50 ML SYRINGE IV (15:12)
[2024-10-23] MEDS: INSULIN REGULAR 100 UNIT/ML 3 ML VIAL IV (15:15)
[2024-10-23] MEDS: methylPREDNISolone 125 MG/2 ML VIAL 80 MG IV (15:27)
--- NOTE | 2024-10-23 15:28 | PC.NURSE ---
Report given to KURT Yancey on [place] [facility]. Bc has all medication drips on his pumps now and is actively giving medications and all of the last titration in the past 5 minutes were changed by KURT Yancey and this RN recorded in our record.
--- NOTE | 2024-10-23 15:32 | PC.NURSE ---
Bc RN requested an empty bag of norepinephrine for route. RN supplied unable to scan medication as there is already a bag hanging. KURT Yancey from [place] [facility] will exchange bag in route when need arises.
[2024-10-23] MEDS: cefTRIAXone 1,000 MG in SODIUM CHLORIDE 0.9% 100 ML 200 MG IV (15:37)
[2024-10-23] MEDS: ROCURONIUM 50 MG/5 ML INJ IV (15:49)
--- NOTE | 2024-10-23 15:50 | PC.NURSE ---
50mg of rocuronium was ordered for KURT Yancey [facility] to give. 50mg given now and an additional 50mg given in route. Anesthesiologist verified with KURT Yancey from [facility] and he states that they are allowed to have patient with paralytics and that he is allowed to administer them if there is an order. This RN witnessed Anesthesiologist giving KURT Yancey verbal order to give one as they leave and 1 in route.
[2024-10-23 15:59] LABS: Allen Test for ABG Passed? Positive; Blood Gas Collection Site Right Radial
--- NOTE | 2024-10-23 16:01 | PC.NURSE ---
Patient is fully on [facility] vital machine and under KURT Yancey care.
[2024-10-23] MEDS: NOREPINEPHRINE BITARTRATE/D5W 4 MG/250 ML PLAST..BAG 144 MG IV (16:03)
--- NOTE | 2024-10-23 16:23 | PC.NURSE ---
This RN called verbal report to KURT Harvey at [facility].
--- NOTE | 2024-10-23 17:23 | PC.NURSE ---
Upon patient getting placed on mechanical ventilation the vent was placed on settings that were left unchanged throughout the rest of the patient stay Peep of 8, FIO2 100%, Tidal volume of 460, with a rate of 20 respirations.
--- NOTE | 2024-10-23 17:35 | PC.NURSE ---
Patient left with Fentanyl, Ketamine, Norepinephrine, propofol drips are running and active with patient as they leave this facility in route to [facility]. This RN released these medications to KURT Yancey [facility].
[2024-10-24 13:00] VITALS: RESP 24; O2SAT 97
== END 2024-10-23 16:23 | disposition short-term general hospital (02) ==
LOC: ED 07:09 → AC 10:37 → ED 12:41
PROVIDERS: Emergency Provider Emergency Medicine; PCP Family Medicine; Referring Provider Emergency Medicine
DX: T78.3XXA Angioneurotic edema, initial encounter (principal); E87.1 Hypo-osmolality and hyponatremia; J18.9 Pneumonia, unspecified organism; R06.02 Shortness of breath; Z87.891 Personal history of nicotine dependence
CPT/HCPCS: 36415; 36600; 70450; 70491; 71045; 71275; 74174; 80048; 80053; 81003; 82550; 82805; 83690; 83880; 84132; 84484; 85025; 85610; 85730; 92950; 93005; 94002; 94640; 94799; 96365; 96366; 96367; 96368; 96372; 96375; 96376; 99152; 99153; 99284; 99291; 99292; J0171; J0330; J0612; J0696; J1200; J1938; J2704; J2919; J3010; J3360; Q9967

== ENCOUNTER → 2024-11-25 16:59 | Outpatient (CLI) | payer OTHER, SELFPAY ==
[2024-10-23 11:00] VITALS: PULSE 114; RESP 4
[2024-10-24 13:00] VITALS: RESP 24; O2SAT 97
--- NOTE | 2024-11-25 | DI.RAD.S_ITS ---
PROCEDURE: XR CHEST 2V INDICATIONS: ACUTE COUGH TECHNIQUE: 2 views of the chest were acquired. COMPARISON: [facility], , XR CHEST 1V, 10/23/2024, 11:42. FINDINGS: Heart, mediastinum and pulmonary vascular: Heart is normal in size and configuration. Mediastinum is unremarkable. Pulmonary vascular is normal. Lungs: Clear Pleural spaces: Normal-no effusions or pneumothorax. Bones and soft tissues: Normal IMPRESSION: Normal chest. Dictated by: Len Lyle M.D. on 11/26/2024 at 11:20 Approved by: Len Lyle M.D. on 11/26/2024 at 11:20
== END ==
PROVIDERS: PCP Family Medicine; Referring Provider Family Medicine; Visit Provider Family Medicine
DX: R05.1 Acute cough (principal)
CPT/HCPCS: 71046

== ENCOUNTER → 2024-12-16 15:56 | Outpatient (CLI) | payer OTHER, SELFPAY ==
[2024-10-23 11:00] VITALS: PULSE 114; RESP 4
[2024-10-24 13:00] VITALS: RESP 24; O2SAT 97
--- NOTE | 2024-12-16 16:00 | DI.RAD.S_ITS ---
PROCEDURE: XR KNEE LT 2V INDICATIONS: KNEE PAIN TECHNIQUE: 2 views of the knee were acquired. COMPARISON: None. FINDINGS: Lateral and patellar sunrise views of the left knee submitted. Moderate degenerative changes with joint space narrowing and osteophytes in the medial, lateral and patellofemoral compartments. No radiographic evidence of displaced fracture, dislocation or high attenuation soft tissue foreign body. No significant knee joint effusion. IMPRESSION: Degenerative changes. If symptoms persist or worsen, or there is high clinical suspicion of left knee abnormality, MRI could be performed. Dictated by: Tank Celaya M.D. on 12/17/2024 at 8:23 Approved by: Tank Celaya M.D. on 12/17/2024 at 8:44
--- NOTE | 2024-12-16 16:00 | DI.RAD.S_ITS ---
PROCEDURE: XR KNEE STANDING BI INDICATIONS: BI KNEE PAIN TECHNIQUE: 1 frontal view of the knees COMPARISON: None. FINDINGS: 2 cm sclerotic area in the right tibia proximal metaphysis medially is nonspecific commonly may represent fibrous cortical defect although other sclerotic lesions not excluded moderate to severe degenerative changes bilaterally right greater than left predominantly in the medial greater than lateral compartments. No radiographic evidence of fracture dislocation or high attenuation foreign body. IMPRESSION: 2 cm sclerotic area in the right proximal tibia metaphysis commonly fibrous cortical defect however other sclerotic lesions not excluded. MRI may be useful for further evaluation. Dictated by: Tank Celaya M.D. on 12/17/2024 at 8:49 Approved by: Tank Celaya M.D. on 12/17/2024 at 8:52
--- NOTE | 2024-12-16 16:00 | DI.RAD.S_ITS ---
PROCEDURE: XR KNEE RT 2V INDICATIONS: KNEE PAIN TECHNIQUE: 2 views of the knee were acquired. COMPARISON: None. FINDINGS: Lateral and patellar sunrise images of the right knee are submitted. Moderate degenerative changes in the medial lateral and patellofemoral compartments with joint space narrowing and osteophytes. No radiographic evidence of displaced fracture, dislocation or high attenuation foreign body. IMPRESSION: Degenerative changes. If symptoms persist or worsen, or there is high clinical suspicion of knee abnormality, MRI could be performed. Dictated by: Tank Celaya M.D. on 12/17/2024 at 8:44 Approved by: Tank Celaya M.D. on 12/17/2024 at 8:49
== END ==
LOC: RAD 15:59
PROVIDERS: PCP Family Medicine; Referring Provider Family Medicine; Visit Provider Family Medicine
DX: G89.29 Other chronic pain (principal); M25.561 Pain in right knee; M25.562 Pain in left knee; M17.0 Bilateral primary osteoarthritis of knee
CPT/HCPCS: 73560; 73565

== ENCOUNTER → 2024-12-19 07:35 | Outpatient (CLI) | payer OTHER, SELFPAY ==
[2024-10-23 11:00] VITALS: PULSE 114; RESP 4
[2024-10-24 13:00] VITALS: RESP 24; O2SAT 97
--- NOTE | 2024-12-19 07:36 | DI.MRI.S_ITS ---
PROCEDURE: MR LOWER LEG RT WO/W CON INDICATIONS: LESION ON RT LOWER LEG TECHNIQUE: Noncontrast coronal T1 spin echo and STIR, sagittal T1 spin echo with fat saturation and STIR, axial T1 spin echo and T2 fast spin echo with fat saturation. After the administration of contrast, axial/sagittal/coronal T1 spin echo with fat saturation through the right lower leg. COMPARISON: [facility], CR, XR KNEE STANDING BI, 12/16/2024, 16:01. [facility], CR, XR KNEE RT 1TO2V, 12/16/2024, 16:01. FINDINGS: Image quality: Excellent. Bones: There is no marrow edema. No fracture or dislocation. No bony erosion or abnormal periosteal reaction is noted in right tibia and fibular 9 x 8 x 12 mm T1 hypointense and T2 hyperintense structure with densely sclerotic margin is seen involving posterior medial cortex of proximal tibial shaft metaphysis without associated marrow edema or fracture series 7 image 13 and series 6, image 24 . No contrast enhancement is noted within this area. No other suspicious intraosseous lesion is seen. Soft tissues: No soft tissue masses are visualized. The scanned muscles demonstrate normal overall bulk and internal signal. Subcutaneous tissues appear normal as well. No abnormal soft tissue enhancement. IMPRESSION: 1. 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 Annual radiographic follow-up is recommended. No other intraosseous lesion. No area of abnormal intraosseous enhancement. No acute lower leg fracture or dislocation. 2. No enhancing soft tissue mass. No area of abnormal intramuscular enhancement. No drainable fluid collection. Dictated by: Mason Skinner M.D. on 12/19/2024 at 16:00 Approved by: Mason Skinner M.D. on 12/19/2024 at 16:06
== END ==
LOC: MRI 07:35
PROVIDERS: PCP Family Medicine; Referring Provider Family Medicine; Visit Provider Family Medicine
DX: M89.9 Disorder of bone, unspecified (principal)
CPT/HCPCS: 73720; A9579

== ENCOUNTER 2025-02-13 17:44 | Emergency (ER) | payer OTHER, SELFPAY ==
[2024-10-23 11:00] VITALS: PULSE 114; RESP 4
[2024-10-24 13:00] VITALS: RESP 24; O2SAT 97
[2025-02-13 17:55] VITALS: BP 149/97; PULSE 112; RESP 20; TEMP 37.1; O2SAT 95; BMI 35.4
--- NOTE | 2025-02-15 17:57 | PM.EVENT ---
Event Note Event Note (Rapid Response, Code, or fall): Patient LWBS
== END 2025-02-13 18:44 | disposition left against medical advice (07) ==
PROVIDERS: Emergency Provider Student in an Organized Health Care Education/Training Program; PCP Family Medicine
CPT/HCPCS: 99281